=== PATIENT | female | born 1985 | race Caucasian/White ===

== ENCOUNTER 2018-04-27 10:44 | Emergency (ER) | payer BC ==
[2018-04-27] MEDS ORDERED: IV NORMAL SALINE 1,000ML 1,000 ML IV ONE (11:30)
[2018-04-27 11:51] LABS: BASO % 1 % (0-3); EOS # 0.1 x10^3/uL (0.0-0.7); EOS % 2 % (0-3); HEMATOCRIT 39.5 % (36.0-47.0); HEMOGLOBIN 13.7 g/dL (12.0-15.5); LYMPH # 2.1 x10^3/uL (1.0-4.8); LYMPH % 45 % (24-48); MEAN CORPUSCULAR HEMOGLOBIN 30 pg (25-35); MEAN CORPUSCULAR HGB CONC 35 g/dL (31-37); MEAN CORPUSCULAR VOLUME 88 fL (79-100); MONO # 0.3 x10^3/uL (0.0-1.1); MONO % 7 % (0-9); NEUT # 2.1 x10^3uL (1.8-7.7); NEUT % 46 % (31-73); PLATELET COUNT 214 x10^3/uL (140-400); RED BLOOD COUNT 4.51 x10^6/uL (3.50-5.40); RED CELL DISTRIBUTION WIDTH 12.6 % (11.5-14.5); WHITE BLOOD COUNT 4.7 x10^3/uL (4.0-11.0)
[2018-04-27 11:58] LABS: BILIRUBIN,URINE NEG (NEG); CLARITY,URINE CLEAR; COLOR,URINE STRAW; GLUCOSE,URINE NEG (NEG); NITRITE,URINE NEG (NEG); UROBILINOGEN,URINE 0.2 mg/dL (0.2 mg/dL)
[2018-04-27 11:59] LABS: BACTERIA,URINE 0 /HPF (0-FEW); SQUAMOUS EPITHELIAL CELL,UR FEW /LPF; WBC,URINE OCC /HPF (0-4)
[2018-04-27 12:04] LABS: ALBUMIN 3.8 g/dL (3.4-5.0); ALBUMIN/GLOBULIN RATIO 1.3 (1.0-1.7); CREATININE 0.7 mg/dL (0.6-1.0); GFR 98.3; POTASSIUM 3.6 mmol/L (3.5-5.1); TOTAL BILIRUBIN 0.6 mg/dL (0.2-1.0); TOTAL PROTEIN 6.8 g/dL (6.4-8.2)
--- NOTE | 2018-04-27 12:30 | PHYS DOC ---
Past History Past Medical History: Endometriosis, Other Past Surgical History: Appendectomy, , Other Alcohol Use: Rarely Drug Use: None Adult General Chief Complaint Chief Complaint: VAGINAL BLEEDING HPI HPI 32-year-old female patient with history of endometriosis complaining of heavy vaginal bleeding since yesterday with passing blood clots and using a pad every an hour with abdominal cramping pain and dizziness and palpitation. Patient states she called her physician who recommended to come to emergency room. She rated her pain 8/10 and doesn't want pain medication in ER. Patient denies other bleeding and vaginal discharge. Patient states she has had abnormal vaginal bleeding for several years and had implanted contraception that had to be removed because of heavy and constant vaginal bleeding. Review of Systems Review of Systems Constitutional: Denies fever or chills [] Eyes: Denies change in visual acuity, redness, or eye pain [] HENT: Denies nasal congestion or sore throat [] Respiratory: Denies cough or shortness of breath [] Cardiovascular: No additional information not addressed in HPI [] GI: Reports abdominal pain, nausea, denies vomiting, bloody stools or diarrhea [ ] : Denies dysuria or hematuria [, reports vaginal bleeding] Musculoskeletal: Denies back pain or joint pain [] Integument: Denies rash or skin lesions [] Neurologic: Denies headache, focal weakness or sensory changes [] Endocrine: Denies polyuria or polydipsia [] All other systems were reviewed and found to be within normal limits, except as documented in this note. Current Medications Current Medications Current Medications Medications (Trade) Dose Ordered Sig/Randolph Start Time Stop Time Status Last Admin Dose Admin Sodium Chloride 1,000 ml @ 1,000 mls/hr 1X ONCE 04/27/18 11:30 04/27/18 12:29 04/27/18 11:40 1,000 MLS/HR Allergies Allergies Allergies Coded Allergies Type Severity Reaction Last Updated Verified nut - unspecified Allergy Unknown 04/27/18 Yes watermelon Allergy Unknown 04/27/18 Yes Uncoded Allergies Type Severity Reaction Last Updated Verified almonds Allergy Unknown 04/27/18 pecans Allergy Unknown 04/27/18 walnuts Allergy Unknown 04/27/18 Physical Exam Physical Exam Constitutional: Well developed, well nourished, mild distress, non-toxic appearance. [] HENT: Normocephalic, atraumatic, oropharynx moistl. [] Eyes: PERRLA, EOMI, conjunctiva normal, no discharge. [] Neck: Normal range of motion, no tenderness, supple, no stridor. [] Cardiovascular:Heart rate regular rhythm, no murmur [] Lungs & Thorax: Bilateral breath sounds clear to auscultation [] Abdomen: Bowel sounds normal, soft, no tenderness, no masses, no pulsatile masses. 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 [] Skin: Warm, dry, no erythema, no rash. [] Back: No tenderness, no CVA tenderness. [] Extremities: No tenderness, no cyanosis, no clubbing, ROM intact, no edema. [] Neurologic: Alert and oriented X 3, normal motor function, normal sensory function, no focal deficits noted. [] Psychologic: Affect normal, judgement normal, mood normal. [] Current Patient Data Vital Signs Vital Signs Date Time Temp Pulse Resp B/P (MAP) Pulse Ox O2 Delivery O2 Flow Rate FiO2 04/27/18 10:59 98.2 88 18 94 Room Air Lab Results Laboratory Tests Test 04/27/18 10:57 04/27/18 11:30 04/27/18 11:35 POC Urine HCG, Qualitative hcg negative (Negative) Urine Collection Type Unknown Urine Color Straw Urine Clarity Clear Urine pH 7.5 Urine Specific Taylor 1.010 Urine Protein Neg (NEG-TRACE) Urine Glucose (UA) Neg mg/dL (NEG) Urine Ketones (Stick) Neg mg/dL (NEG) Urine Blood Large (NEG) Urine Nitrite Neg (NEG) Urine Bilirubin Neg (NEG) Urine Urobilinogen Dipstick 0.2 mg/dL (0.2 mg/dL) Urine Leukocyte Esterase Neg (NEG) Urine RBC 11-20 /HPF (0-2) Urine WBC Occ /HPF (0-4) Urine Squamous Epithelial Cells Few /LPF Urine Bacteria 0 /HPF (0-FEW) White Blood Count 4.7 x10^3/uL (4.0-11.0) Red Blood Count 4.51 x10^6/uL (3.50-5.40) Hemoglobin 13.7 g/dL (12.0-15.5) Hematocrit 39.5 % (36.0-47.0) Mean Corpuscular Volume 88 fL (79-100) Mean Corpuscular Hemoglobin 30 pg (25-35) Mean Corpuscular Hemoglobin Concent 35 g/dL (31-37) Red Cell Distribution Width 12.6 % (11.5-14.5) Platelet Count 214 x10^3/uL (140-400) Neutrophils (%) (Auto) 46 % (31-73) Lymphocytes (%) (Auto) 45 % (24-48) Monocytes (%) (Auto) 7 % (0-9) Eosinophils (%) (Auto) 2 % (0-3) Basophils (%) (Auto) 1 % (0-3) Neutrophils # (Auto) 2.1 x10^3uL (1.8-7.7) Lymphocytes # (Auto) 2.1 x10^3/uL (1.0-4.8) Monocytes # (Auto) 0.3 x10^3/uL (0.0-1.1) Eosinophils # (Auto) 0.1 x10^3/uL (0.0-0.7) Basophils # (Auto) 0.0 x10^3/uL (0.0-0.2) Prothrombin Time 10.4 SEC (9.4-11.4) Prothrombin Time INR 1.0 (0.9-1.1) PTT 24 SEC (23-33) Sodium Level 140 mmol/L (136-145) Potassium Level 3.6 mmol/L (3.5-5.1) Chloride Level 106 mmol/L (98-107) Carbon Dioxide Level 29 mmol/L (21-32) Anion Gap 5 (6-14) L Blood Urea Nitrogen 7 mg/dL (7-20) Creatinine 0.7 mg/dL (0.6-1.0) Estimated GFR (Cockcroft-Gault) 98.3 BUN/Creatinine Ratio 10 (6-20) Glucose Level 94 mg/dL (70-99) Calcium Level 9.0 mg/dL (8.5-10.1) Total Bilirubin 0.6 mg/dL (0.2-1.0) Aspartate Amino Transferase (AST) 19 U/L (15-37) Alanine Aminotransferase (ALT) 22 U/L (14-59) Alkaline Phosphatase 36 U/L (46-116) L Total Protein 6.8 g/dL (6.4-8.2) Albumin 3.8 g/dL (3.4-5.0) Albumin/Globulin Ratio 1.3 (1.0-1.7) EKG EKG [] Radiology/Procedures Radiology/Procedures [][address] [id number] IMAGING REPORT Signed PATIENT: JOJO GARSIA ACCOUNT: [id number] : 1985 LOCATION: ER AGE: 32 SEX: F EXAM STATUS: REG ER ORD. PHYSICIAN: LISA FINNEY MD REASON: heavy vaginal bleeding PROCEDURE: US PELVIS W/TV Examination: Ultrasound pelvis HISTORY: History of heavy bleeding, large clots COMPARISON: None available TECHNIQUE: Transabdominal, transvaginal ultrasonogram pelvis FINDINGS: The uterus measures 8.8 x 4.7 x 3.3 cm. The endometrium measures 6 mm in thickness. The right ovary measures 4.6 x 2.9 x 2.2 cm . The left ovary measures 2.7 x 1.7 x 2.1 cm. There is a cystic structure identified in the right ovary measuring 2.4 cm. There is minimal amount of fluid identified in the cervix. Blood flow identified in the right and left ovaries. Small amount of free fluid identified in the cul-de-sac. IMPRESSION: 1. The endometrium is within normal limits of dimension. 2. A 2.4 cm cystic structure identified in the right ovary probably a follicle. Electronically signed by: Raj Moran MD (04/27/2018 2:09 PM) [id number] DICTATED AND SIGNED BY: RAJ MORAN MD DATE: 04/27/18 1403 CC: LISA FINNEY MD; NON,STAFF ~ Course & Med Decision Making Course & Med Decision Making Pertinent Labs and Imaging studies reviewed. (See chart for details) Evaluation of patient in ER showed 32-year-old female patient with complaining of heavy vaginal bleeding since yesterday. Patient had unremarkable physical exam and labs. [id number] vaginal bleeding in vaginal exam. Patient didn' t want to have pain medication in ER. Patient treated with IV fluid and stated her pain resolved. 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 [] Donaldo Disclaimer Dragon Disclaimer This electronic medical record was generated, in whole or in part, using a voice recognition dictation system. Departure Departure: Impression: Primary Impression: Menorrhagia Additional Impressions: History of endometriosis Ovarian cyst Disposition: HOME, SELF-CARE (at 1416) Condition: IMPROVED Referrals: NON,STAFF (PCP) Patient Instructions: Menorrhagia, Ovarian Cyst Additional Instructions: Drink plenty of liquids Follow-up with your primary care physician in 3-5 days Return to ER if not getting better Scripts Naproxen (NAPROSYN) 500 Mg Tablet 1 TAB PO BID, #20 TAB Prov: LISA FINNEY MD 04/27/18 Problem Qualifiers LISA FINNEY MD Apr 27, 2018 12:30
--- NOTE | 2018-04-27 14:12 | RAD ---
Examination: Ultrasound pelvis HISTORY: History of heavy bleeding, large clots COMPARISON: None available TECHNIQUE: Transabdominal, transvaginal ultrasonogram pelvis FINDINGS: The uterus measures 8.8 x 4.7 x 3.3 cm. The endometrium measures 6 mm in thickness. The right ovary measures 4.6 x 2.9 x 2.2 cm . The left ovary measures 2.7 x 1.7 x 2.1 cm. There is a cystic structure identified in the right ovary measuring 2.4 cm. There is minimal amount of fluid identified in the cervix. Blood flow identified in the right and left ovaries. Small amount of free fluid identified in the cul-de-sac. IMPRESSION: 1. The endometrium is within normal limits of dimension. 2. A 2.4 cm cystic structure identified in the right ovary probably a follicle. Electronically signed by: Raj Moran MD (04/27/2018 2:09 PM) [id number]
[2018-04-27] MEDS ORDERED: NAPR-683 PO (14:22)
[2018-04-27 14:28] VITALS: BP 128/59
== END 2018-04-27 14:28 | disposition home or self-care (01) ==
LOC: ER 10:44
DX: N92.0 Excessive and frequent menstruation with regular cycle (principal); N83.201 Unspecified ovarian cyst, right side; R42 Dizziness and giddiness; Z90.49 Acquired absence of other specified parts of digestive tract; Z98.890 Other specified postprocedural states; Z91.018 Allergy to other foods
CPT/HCPCS: 36415; 76830; 76856; 80053; 81001; 81025; 85025; 85610; 85730; 96360; 96361; 99285-25; J7030